=== PATIENT | male | born 2000 | race Hispanic/Latino ===

== ENCOUNTER 2020-08-26 18:37 | Emergency (ER) | payer BC ==
[2020-08-26] MEDS ORDERED: Ketorolac Tromethamine 30 MG/ML VIAL ONE (19:16)
[2020-08-26] MEDS ORDERED: Acetaminophen 500 MG TAB ONE (19:17)
== END 2020-08-26 20:32 | disposition home or self-care (01) ==
LOC: CSHERS 18:37
DX: R51.9 Headache, unspecified (principal)
CPT/HCPCS: 96374; J1885